=== PATIENT | male | born 1940 | race Caucasian/White ===

== ENCOUNTER → 2016-12-22 | Outpatient (CLI) | payer MEDICARE, OTHER ==
[~2016-12-22] MED LIST: ASPI81TA44 PO; CALC-77 PO; ESOM40CA PO; GABA-585 PO; LOSA1TAB2 PO; MESA1.2T PO; METF500T9 PO; MULT-245 PO; SILD50TA PO; SIMV40TA PO; SITA100T PO
--- NOTE | 2016-12-22 13:15 | RAD ---
APPROVED REPORT Test Type: Exercise Stress Nurse/Tech: heidy fenton Test Indications: chest pain Cardiac History: HTN,SEE EHR Medications: SEE EHR Medical History: DIABETES, SEE EHR Resting ECG: SR Resting Heart Rate: 64 bpm Resting Blood Pressure: 113/60mmHg Pretest Chest Pain: No chest pain Nurse/Tech Notes LUNG SOUNDS CLEAR, S1S2 WNL. Consent: The procedure was explained to the patient in lay terms. Informed consent was witnessed. Kirk eout was entered into [employer]. History and Stress Test performed by RT Sarabjit (R) (N) Stress Symptoms NONE STATED. POST EXERCISE Reason for Termination: Reached target heart rate Max HR: 203 bpm Max Blood Pressure: 156/61mmHg Blood Pressure response to exercise: Uable to obtain accurate BP while on treadmill. Heart Rate response to exercise: WNL Chest Pain: No. Arrhythmia: Yes. OCCASIONAL PAC'S ST Change: No. INTERPRETATION Stress EKG Conclusion: Non-specific ST/T changes. Imaging Protocol IMAGE PROTOCOL: Rest Tc-99m/stress Tc-99m 1 day Rest: Stress: Viability: Radiopharm.Tc99m MjpkwiviiEs64v Sestamibi Hdvj10lIi 35mCi Duration 15min. 10min. Img Date 12/22/2016 12/22/2016 Inj-Img Orxc01lyz. 60min. Post-Injection Exercise: one minute Rest Admin Site:IV - Right AntecubitalAdministrator:RT Sarabjit (R)(N) Stress Admin Site: IV - Right AntecubitalAdministrator: ALVIN Amaral, ARRT (R)(N) STRESS DATA End Diast. Vol.90.0mlAv. Heart Rate78.0bpm End Syst. Vol.25.0mlCO Index BSA0.0L/min Myocardial Smra908.0gEject. Vcfcbiik95.0% Stress Rates Pk. Fill Rate3.29EDV/secLVtime Pk. Fill 226.06msec Pk. Empty Rate4.79ESV/secLVtime Pk. Vlgjp338.49msec 11/01 Pk. Fill1.27EDV/sec Stress Scores Regional WT0.00Summed WT0.00 Regional WM0.00Summed WM0.00 The rest and stress images show normal perfusion, normal contraction and thickening. LV Perf. Quant 17 Seg. SSS0.00 17 Seg. SRS4.00 17 Seg. SDS0.00 Stress Defect Extent (% LAD)0.00Rest Defect Extent (% LAD)0.00Rev. Defect Extent (% LAD)0.00 Stress Defect Extent (% LCX) 0.00Rest Defect Extent (% LCX)2.50Rev. Defect Extent (% LCX)0.00 Stress Defect Extent (% RCA)0.00Rest Defect Extent (% RCA)4.40Rev. Defect Extent (% RCA)0.00 Stress Defect Extent (% SHIMON)0.00Rest Defect Extent (% SHIMON)4.10Rev. Defect Extent (% SHIMON)0.00 Other Information Quality:Average Risk Assessment: Low Risk Conclusion 1. No evidence of stress induced EKG changes. 2. Normal myocardial perfusion at stress/rest. 3. Low risk study. EF > 70% 4. Subdiaphragmatic attenuation artifact noted.
== END | disposition home or self-care (01) ==
LOC: NM 07:51
PROVIDERS: ATTEND Internal Medicine Cardiovascular Disease
DX: I45.19 Other right bundle-branch block (principal); E11.9 Type 2 diabetes mellitus without complications; I10 Essential (primary) hypertension
CPT/HCPCS: 78452; 93017; 96374; 96376; A9500

== ENCOUNTER → 2022-02-16 | Outpatient (CLI) | payer MEDICARE, OTHER ==
[~2022-02-16] MED LIST changes: -ASPI81TA44 PO; +ASPI81TA59 PO; +LIALDA1.2 GM PO; -MESA1.2T PO; +METF-658 PO; -METF500T9 PO
--- NOTE | 2022-02-16 17:40 | CARD ---
MR#: [id number] Date of Study: 02/16/2022 Ordering Physician: POLINA PASCUAL, Referring Physician: POLINA PASCUAL, Tech: Radha Ba [facility], [facility]T APPROVED REPORT EXAM: Two-dimensional and M-mode echocardiogram with Doppler and color Doppler. Other Information Quality : GoodHR: 58bpm Rhythm : NSR INDICATION Dyspnea 2D DIMENSIONS Left Atrium(2D)4.2 (1.6-4.0cm)IVSd1.3 (0.7-1.1cm) Aortic Root(2D)3.7 (2.0-3.7cm)LVDd4.6 (3.9-5.9cm) LVOT Diameter2.3 (1.8-2.4cm)PWd1.1 (0.7-1.1cm) LVDs3.1 (2.5-4.0cm)FS (%) 32.1 % SV59.5 ml Aortic Valve AoV Peak Collins.113.1cm/sAoV VTI22.9cm AO Peak GR.5.1mmHgLVOT Peak Collins.77.6cm/s LVOT VTI 17.76cmAO Mean GR.3mmHg SYLVIA (VMAX)2.73ys3WUY (VTI)3.20cm2 Mitral Valve MV E Aivdhiub82.3cm/sMV DECEL SZWM244ky MV A Ovukqapa91.9cm/sMV GSB84qz E/A Ratio1.1MVA (PHT)2.82cm2 Pulmonary Valve PV Peak Kacuofaa93.7cm/sPV Peak Grad.4mmHg Tricuspid Valve TR P. Pzzpirqm481yr/sRAP ZZIZNZQU2eeHr TR Peak Gr.01xlLyILPA09okUo Pulmonary Vein S1 Tbnjcsck65.4cm/sD2 Kxrjozic49.8cm/s PVa tsbbhzqz485fwma LEFT VENTRICLE The left ventricle is normal size. There is borderline to mild concentric left ventricular hypertroph y. LV ejection fraction is 55 to 60%. There is slight apical hypokinesis. The left ventricular diasto lic function is normal. No left ventricle thrombus noted on this study. There is no ventricular septa l defect visualized. There is no left ventricular aneurysm. There is no mass noted in the left ventri jesus. RIGHT VENTRICLE The right ventricle is normal size. There is normal right ventricular wall thickness. The right ventr icular systolic function is normal. ATRIA The left atrium is mildly dilated. The right atrium is mildly dilated. The interatrial septum is inta ct with no evidence for an atrial septal defect or patent foramen ovale as noted on 2-D or Doppler im aging. AORTIC VALVE The aortic valve is normal in structure and function. No aortic regurgitation is present. There is no aortic valvular stenosis. There is no aortic valvular vegetation. MITRAL VALVE The mitral valve is normal in structure and function. There is no evidence of mitral valve prolapse. There is no mitral valve stenosis. Doppler and Color-flow revealed trace mitral regurgitation. TRICUSPID VALVE The tricuspid valve is normal in structure and function. Doppler and Color Flow revealed trace to mil d tricuspid regurgitation. The pulmonary artery systolic pressure is estimated at less than 30 mmHg. There is no tricuspid valve prolapse or vegetation. There is no tricuspid valve stenosis. PULMONIC VALVE The pulmonary valve is normal in structure and function. There is no pulmonic valvular regurgitation. There is no pulmonic valvular stenosis. GREAT VESSELS The aortic root is normal in size. The ascending aorta is normal in size. The pulmonary artery is nor mal. The IVC is normal in size and collapses >50% with inspiration. PERICARDIAL EFFUSION There is no pleural effusion. The pericardium appears normal. Critical Notification Critical Value: No <Conclusion> The left ventricle is normal size. LV ejection fraction is 55 to 60%. There is slight apical hypokinesis. There is borderline to mild concentric left ventricular hypertrophy. No aortic regurgitation is present. There is no aortic valvular stenosis. Doppler and Color-flow revealed trace mitral regurgitation. Doppler and Color Flow revealed trace to mild tricuspid regurgitation. The pulmonary artery systolic pressure is estimated at less than 30 mmHg. Signed by : Octavio Mills MD Electronically Approved : 02/16/2022 17:40:09
== END ==
LOC: ECHO 08:52
PROVIDERS: ATTEND Internal Medicine Cardiovascular Disease
DX: I07.1 Rheumatic tricuspid insufficiency (principal); I10 Essential (primary) hypertension; R06.00 Dyspnea, unspecified
CPT/HCPCS: 93306; C8929